=== PATIENT | male | born 1970 | race Two or more races ===

== ENCOUNTER 2023-10-23 20:54 | Emergency (ER) | payer OTHER ==
[~2023-10-23] VITALS: Ht 167.6 cm; Wt 96.0 kg
[2023-10-23 21:48] LABS: COVID AG,FIA SOURCE NASAL SWAB
[2023-10-23 22:05] LABS: INFLUENZA TYPE A NEGATIVE FOR TYPE A (NEGATIVE); INFLUENZA TYPE B NEGATIVE FOR TYPE B (NEGATIVE)
[2023-10-23 22:06] LABS: SARS-COV2 (COVID) ANTIGEN,FIA Negative (Negative)
[2023-10-23 23:51] VITALS: BP 125/74; PULSE 99; RESP 15; TEMP 98.4
== END 2023-10-24 01:34 | disposition home or self-care (01) ==
LOC: EMS 20:57
DX: J06.9 Acute upper respiratory infection, unspecified (principal); E78.00 Pure hypercholesterolemia, unspecified; I10 Essential (primary) hypertension; Z90.49 Acquired absence of other specified parts of digestive tract; Z87.891 Personal history of nicotine dependence; Z98.890 Other specified postprocedural states; Z20.822 Contact with and (suspected) exposure to COVID-19
CPT/HCPCS: 71045; 87804; 99284